=== PATIENT | male | born 1965 | race Caucasian/White ===

== ENCOUNTER 2024-10-26 07:32 | Emergency (ER) | payer OTHER ==
[~2024-10-26] VITALS: Ht 180.3 cm; Wt 68.2 kg
[~2024-10-26 07:32] MED LIST: CYCL-1 PO; IBUP-1984 PO; LIDO700A32 TD
[2024-10-26 07:37] VITALS: TEMP 98.1
[2024-10-26] MEDS ORDERED: PETR5OIN3 TOP (09:58)
[2024-10-26] MEDS ORDERED: DOCU-148 PO (09:58)
[2024-10-26 10:04] VITALS: BP 132/90; PULSE 65; RESP 16; O2SAT 98
== END 2024-10-26 10:05 | disposition home or self-care (01) ==
LOC: ER 07:33
DX: K60.2 Anal fissure, unspecified (principal); Z79.899 Other long term (current) drug therapy
CPT/HCPCS: 99282